=== PATIENT | female | born 1965 | race Asian ===

== ENCOUNTER 2016-06-05 08:59 | Emergency (ER) | payer OTHER ==
[~2016-06-05] VITALS: Wt 54.5 kg
[2016-06-05] MEDS ORDERED: LACR35O LEFT EYE (09:10)
[2016-06-05] MEDS ORDERED: PRED20TA PO (09:10)
[2016-06-05] MEDS ORDERED: HYD25 PO (09:10)
[2016-06-05] MEDS ORDERED: NICARDipine HCL 30 MG CAPSULE PO ONE ×2 (09:30→10:00)
[2016-06-05] MEDS ORDERED: predniSONE 20 MG TAB PO ONE (09:30)
[2016-06-05 09:55] VITALS: BP 174/88; RESP 18
--- NOTE | 2016-06-05 12:56 | ERD ---
ER Documentation Chief Complaint Date/Time DATE: 06/05/16 TIME: 12:54 Chief Complaint left sided facial paralysis since last night. no motor deficit.steady gait. HPI Patient is a 50-year-old female with hypertension who presents with left-sided facial drooping. The patient says that she cannot close her left eye. She has left-sided facial drooping and numbness. The symptoms started last night. She denies fevers. She denies rashes. She has no recent travel. She has had no treatment as of yet. There is no slurred speech. There is no arm or leg weakness. Upon review of old medical records the patient one previous visit to the ER in 2006. She does not currently have a primary doctor. ROS All systems reviewed and are negative except as per history of present illness. Medications Home Meds Active Scripts Mineral Oil/Lanolin Oil (Lacri-Lube) 3.5 Gm Oint, 1 APPLIC LEFT EYE NEEDED for DRY EYES, #1 EA Prov:FLIP HASSAN MD 06/05/16 Prednisone* (Prednisone*) 20 Mg Tab, 60 MG PO DAILY for 5 Days, TAB Prov:FLIP HASSAN MD 06/05/16 Hydrochlorothiazide* (Hydrochlorothiazide*) 25 Mg Tab, 25 MG PO DAILY, #30 TAB Prov:FLIP HASSAN MD 06/05/16 Allergies Allergies: Coded Allergies: No Known Allergy (Unverified , 06/05/16) PMhx/Soc History of Surgery: No Anesthesia Reaction: No Hx Neurological Disorder: No Hx Respiratory Disorders: No Hx Cardiac Disorders: Yes (HTN) Hx Psychiatric Problems: No Hx Miscellaneous Medical Probl: No Hx Alcohol Use: No Hx Substance Use: No Hx Tobacco Use: No Smoking Status: Never smoker FmHx Family History: No diabetes Physical Exam Vitals Vital Signs Date Time Temp Pulse Resp B/P Pulse Ox O2 Delivery O2 Flow Rate FiO2 06/05/16 09:55 18 174/88 98 Room Air 06/05/16 09:01 98.8 76 21 250/137 98 Physical Exam Const: No acute distress Head: Atraumatic Eyes: Normal Conjunctiva ENT: Normal External Ears, Nose and Mouth. Neck: Full range of motion..~ No meningismus. Resp: Clear to auscultation bilaterally Cardio: Regular rate and rhythm, no murmurs Abd: Soft, non tender, non distended. Normal bowel sounds Skin: No petechiae or rashes Back: No midline or flank tenderness Ext: No cyanosis, or edema Neur: Awake and alert, no slurred speech, left-sided cranial nerve VII palsy with eyebrow and forehead involvement, all other cranial nerves are normal, strength is 5 out of 5 in all 4 extremities Psych: Normal Mood and Affect Results 24 hrs Current Medications Medications (Trade) Dose Ordered Sig/Katie Route PRN Reason Start Time Stop Time Status Last Admin Dose Admin Nicardipine HCl (Cardene) 30 mg ONCE ONCE PO 06/05/16 09:30 06/05/16 09:58 DC 06/05/16 09:20 Prednisone (Prednisone) 60 mg ONCE ONCE PO 06/05/16 09:30 06/05/16 09:58 DC 06/05/16 09:20 Nicardipine HCl (Cardene) 30 mg ONCE ONCE PO 06/05/16 10:00 06/05/16 10:01 DC 06/05/16 09:46 Procedures/MDM Patient is a 50-year-old female presents with what appears to be an acute Khan' s palsy. At this point I doubt stroke. She does have elevated blood pressure however and she was given Cardene twice to reduce the blood pressure. However this point I doubt stroke or intracranial hemorrhage. I believe outpatient management is appropriate and the patient will be given a prescription for prednisone, Lacri-Lube, and hydrochlorothiazide. The patient will need to follow-up closely with her primary doctor within 24-48 hours. She will be given information for the local clinics as she does not currently have a primary doctor. She can return for any worsening symptoms. Departure Diagnosis: Primary Impression: Hypertension Hypertension type: essential hypertension Qualified Code: I10 - Essential hypertension Additional Impression: Khan's palsy Condition: Fair Patient Instructions: Khan's Palsy, Hypertension, Established Referrals: COMM[facility] CLIN[facility] YOU HAVE RECEIVED A MEDICAL SCREENING EXAM AND THE RESULTS INDICATE THAT YOU DO NOT HAVE A CONDITION THAT REQUIRES URGENT TREATMENT IN THE EMERGENCY DEPARTMENT. FURTHER EVALUATION AND TREATMENT OF YOUR CONDITION CAN WAIT UNTIL YOU ARE SEEN IN YOUR DOCTORS OFFICE WITHIN THE NEXT 1-2 DAYS. IT IS YOUR RESPONSIBILITY TO MAKE AN APPOINTMENT FOR FOLOW-UP CARE. IF YOU HAVE A PRIMARY DOCTOR --you should call your primary doctor and schedule an appointment IF YOU DO NOT HAVE A PRIMARY DOCTOR YOU CAN CALL OUR PHYSICIAN REFERRAL HOTLINE AT IF YOU CAN NOT AFFORD TO SEE A PHYSICIAN YOU CAN CHOSE FROM THE FOLLOWING [facility] [address] [facility] [address] [address] [facility] [address] [facility] [address]. [facility]. [address] Additional Instructions: Call your primary care doctor TOMORROW for an appointment during the next 1-2 days.See the doctor sooner or return here if your condition worsens before your appointment time. FLIP HASSAN MD Jun 05, 2016 12:56
== END 2016-06-05 10:08 | disposition home or self-care (01) ==
LOC: E/R 08:59
DX: I10 Essential (primary) hypertension (principal); G51.0 Bell's palsy; R40.2142 Coma scale, eyes open, spontaneous, at arrival to emergency department; R40.2252 Coma scale, best verbal response, oriented, at arrival to emergency department; R40.2362 Coma scale, best motor response, obeys commands, at arrival to emergency department
CPT/HCPCS: J7512; Z7502; Z7610; 99284